=== PATIENT | female | born 1980 | race Caucasian/White ===

== ENCOUNTER 2021-05-10 08:52 | Emergency (ER) | payer SELFPAY | END 2021-05-10 09:15 | disposition left against medical advice (07) | LOC: ER 08:52 | DX: R52 Pain, unspecified (principal); Z53.21 Procedure and treatment not carried out due to patient leaving prior to being seen by health care provider ==

== ENCOUNTER 2021-05-12 14:09 | Emergency (ER) | payer OTHER ==
[~2021-05-12] VITALS: Ht 160 cm; Wt 75.0 kg
[2021-05-12] MEDS ORDERED: PROCHLORPERAZINE 10 MG/2 ML VIAL. IV ONE (15:00)
[2021-05-12] MEDS ORDERED: DEXAMETHASONE SOD PHOS 4 MG/ML VIAL IVP ONE (15:00)
[2021-05-12] MEDS ORDERED: LISINOPRIL 10 MG TABLET PO ONE (15:00)
[2021-05-12] MEDS ORDERED: diphenhydrAMINE HCL 25 MG CAPSULE PO ONE (15:00)
[2021-05-12 15:05] LABS: BASO % 1 % (0-3); EOS # 0.2 x10^3/uL (0.0-0.7); EOS % 4 % (0-3); HEMATOCRIT 35.4 % (36.0-47.0); HEMOGLOBIN 12.4 g/dL (12.0-15.5); LYMPH # 1.9 x10^3/uL (1.0-4.8); LYMPH % 37 % (24-48); MEAN CORPUSCULAR HEMOGLOBIN 32 pg (25-35); MEAN CORPUSCULAR HGB CONC 35 g/dL (31-37); MEAN CORPUSCULAR VOLUME 91 fL (79-100); MONO # 0.5 x10^3/uL (0.0-1.1); MONO % 10 % (0-9); NEUT # 2.5 x10^3/uL (1.8-7.7); NEUT % 49 % (31-73); PLATELET COUNT 223 x10^3/uL (140-400); RED BLOOD COUNT 3.88 x10^6/uL (3.50-5.40); RED CELL DISTRIBUTION WIDTH 13.1 % (11.5-14.5); WHITE BLOOD COUNT 5.1 x10^3/uL (4.0-11.0)
[2021-05-12 15:13] LABS: CALCIUM 9.1 mg/dL (8.5-10.1); CREATININE 1.1 mg/dL (0.6-1.0); GFR 54.7; POTASSIUM 3.6 mmol/L (3.5-5.1)
[2021-05-12 15:18] LABS: ALBUMIN 3.9 g/dL (3.4-5.0); ALBUMIN/GLOBULIN RATIO 1.1 (1.0-1.7); TOTAL BILIRUBIN 0.2 mg/dL (0.2-1.0); TOTAL PROTEIN 7.6 g/dL (6.4-8.2)
--- NOTE | 2021-05-12 15:26 | ED.ADGEN ---
General Adult EDM: Chief Complaint: SYNCOPE HPI: HPI: Patient is a 40-year-old female who presents to the emergency room after having an episode of dizziness while working. Patient states she has been having intermittent headaches throughout the day that started this morning. She then developed some lightheadedness and states that she just generally feels unwell. She states she has a history of high blood pressure but has not been on her medicine for the last month because she cannot get into her primary care phys ician. Patient denies any chest pain or shortness of breath. She denies any URI symptoms. Review of Systems: Review of Systems: Complete ROS is negative unless otherwise documented in HPI Current Medications: Current Medications Medications (Trade) Dose Ordered Sig/Rudy Start Time Stop Time Status Last Admin Dose Admin Dexamethasone Sodium Phosphate (Decadron) 10 mg 1X ONCE 05/12/21 15:00 05/12/21 15:20 DC 05/12/21 15:55 10 MG Diphenhydramine HCl (Benadryl) 25 mg 1X ONCE 05/12/21 15:00 05/12/21 15:20 DC 05/12/21 15:56 25 MG Lisinopril (Prinivil) 20 mg 1X ONCE 05/12/21 15:00 05/12/21 15:20 DC 05/12/21 15:56 20 MG Prochlorperazine Edisylate (Compazine) 10 mg 1X ONCE 05/12/21 15:00 05/12/21 15:20 DC 05/12/21 15:56 10 MG Allergies: Allergies: Allergies Coded Allergies Type Severity Reaction Last Updated Verified hydrocodone Allergy Severe itch 05/12/21 Yes escitalopram Adverse Reaction Severe emotionally outbursts 05/12/21 Yes Physical Exam: PE: General: Awake, alert, NAD. Well Nourished, well hydrated. Cooperative HEENT: Atraumatic, EOMI, PERRL, airway patent, moist oral mucosa Neck: Supple, trachea midline Respiratory: CTA bilaterally, normal effort, no wheezing/crackles CV: RRR, no murmur, cap refill <2 GI: Soft, nondistended, nontender, no masses MSK: No obvious deformities Skin: Warm, dry, intact Neuro: A&O x3, speech NL, 5/5 strength in BUE/BLE distally and proximally, CN 2- 12 intact, cerebellar testing normal Psych: Normal affect, normal mood, not suicidal or homicidal Current Patient Data: Labs: Laboratory Tests Test 05/12/21 14:30 White Blood Count 5.1 x10^3/uL (4.0-11.0) Red Blood Count 3.88 x10^6/uL (3.50-5.40) Hemoglobin 12.4 g/dL (12.0-15.5) Hematocrit 35.4 % (36.0-47.0) L Mean Corpuscular Volume 91 fL (79-100) Mean Corpuscular Hemoglobin 32 pg (25-35) Mean Corpuscular Hemoglobin Concent 35 g/dL (31-37) Red Cell Distribution Width 13.1 % (11.5-14.5) Platelet Count 223 x10^3/uL (140-400) Neutrophils (%) (Auto) 49 % (31-73) Lymphocytes (%) (Auto) 37 % (24-48) Monocytes (%) (Auto) 10 % (0-9) H Eosinophils (%) (Auto) 4 % (0-3) H Basophils (%) (Auto) 1 % (0-3) Neutrophils # (Auto) 2.5 x10^3/uL (1.8-7.7) Lymphocytes # (Auto) 1.9 x10^3/uL (1.0-4.8) Monocytes # (Auto) 0.5 x10^3/uL (0.0-1.1) Eosinophils # (Auto) 0.2 x10^3/uL (0.0-0.7) Basophils # (Auto) 0.0 x10^3/uL (0.0-0.2) Sodium Level 136 mmol/L (136-145) Potassium Level 3.6 mmol/L (3.5-5.1) Chloride Level 102 mmol/L (98-107) Carbon Dioxide Level 24 mmol/L (21-32) Anion Gap 10 (6-14) Blood Urea Nitrogen 13 mg/dL (7-20) Creatinine 1.1 mg/dL (0.6-1.0) H Estimated GFR (Cockcroft-Gault) 54.7 BUN/Creatinine Ratio 12 (6-20) Glucose Level 155 mg/dL (70-99) H Calcium Level 9.1 mg/dL (8.5-10.1) Total Bilirubin 0.2 mg/dL (0.2-1.0) Aspartate Amino Transferase (AST) 17 U/L (15-37) Alanine Aminotransferase (ALT) 23 U/L (14-59) Alkaline Phosphatase 64 U/L (46-116) Troponin I Quantitative < 0.017 ng/mL (0.000-0.055) Total Protein 7.6 g/dL (6.4-8.2) Albumin 3.9 g/dL (3.4-5.0) Albumin/Globulin Ratio 1.1 (1.0-1.7) Laboratory Tests 05/12/21 14:30 Laboratory Tests 05/12/21 14:30 Vital Signs: Vital Signs Date Time Temp Pulse Resp B/P (MAP) Pulse Ox O2 Delivery O2 Flow Rate FiO2 05/12/21 15:56 81 159/90 05/12/21 15:12 98.0 20 98 Room Air 98.0 EKG: EKG: [] Heart Score: C/O Chest Pain: N/A Risk Factors: Risk Factors: DM, Current or recent (<one month) smoker, HTN, HLP, family history of CAD, obesity. Risk Scores: Score 0 - 3: 2.5% MACE over next 6 weeks - Discharge Home Score 4 - 6: 20.3% MACE over next 6 weeks - Admit for Clinical Observation Score 7 - 10: 72.7% MACE over next 6 weeks - Early Invasive Strategies Radiology/Procedures: Radiology/Procedures: [] Course & Med Decision Making: Course & Med Decision Making Pertinent Labs and Imaging studies reviewed. (See chart for details) Patient is a 40-year-old female who presents to the emergency room after developing lightheadedness and headaches that started earlier today. Patient is neurovascularly intact. She is hypertensive. She has not been taking her medications for about a month. CT head will be done to rule out an intracranial hemorrhage. CT is negative. Lab work is unremarkable. EKG is normal. Patient is feeling better after a migraine cocktail. She does not appear to have hypertensive emergency. Will prescribe her her lisinopril. Patient's test results and vitals while in the ED were fully reviewed and discussed with the patient. Patient is stable and at this time does not need admission to the hospital. We have discussed strict return precautions and the importance of following up with their Primary Care Physician. Patient stated understanding and was given an opportunity to ask any questions. Patient is in agreement with plan. Dragon Disclaimer: Christina Disclaimer: This electronic medical record was generated, in whole or in part, using a voice recognition dictation system. Departure Departure Impression: Primary Impression: Hypertension Additional Impression: Dizziness Disposition: HOME / SELF CARE / HOMELESS Condition: STABLE Referrals: NO PCP (PCP) Patient Instructions: Hypertension, Migraine Headache Scripts Lisinopril (LISINOPRIL) 20 Mg Tablet 1 TAB PO DAILY, #30 TAB 5 Refills Prov: ESTELA HARVEY MD 05/12/21 Problem Qualifiers ESTELA HARVEY MD May 12, 2021 15:26
--- NOTE | 2021-05-12 15:34 | RAD ---
PQRS Compliance Statement: One or more of the following individualized dose reduction techniques were utilized for this examinat ion: 1. Automated exposure control 2. Adjustment of the mA and/or kV according to patient size 3. Use of iterative reconstruction technique CT head without contrast 05/12/2021 3:25 PM INDICATION: Dizzy, new onset headache and hypertension COMPARISON: None available TECHNIQUE: Multiple axial CT images of the head were obtained from skull base through the vertex with out intravenous contrast. FINDINGS: Head: Ventricles, sulci and basal cisterns are within normal limits. There is no hydrocephalus. Muhammad-white matter differentiation is normal. There is no acute intracranial hemorrhage. There is no mass, mass e ffect or midline shift. Posterior fossa is normal in appearance. Visualized portions of the orbits are normal. Paranasal sinuses are well aerated. Mastoid air cells a re well aerated. Scalp and calvaria are normal. IMPRESSION: No acute intracranial hemorrhage. Electronically signed by: Nadiya Gomez MD (05/12/2021 3:31 PM) [id number]
--- NOTE | 2021-05-12 15:36 | RAD ---
AP chest. HISTORY: Dizzy AP view was taken of the chest. Lungs are clear. Heart is normal in size. There is no pleural effusio n. IMPRESSION: 1. No acute chest disease. Electronically signed by: Sunny Orozco MD (05/12/2021 3:34 PM) [facility]
[2021-05-12 15:56] VITALS: BP 159/90
[2021-05-12] MEDS ORDERED: LISI20TA18 PO (16:45)
--- NOTE | 2021-05-12 17:49 | EKG ---
[facility] [address] [place] [address] Test Date: 2021-05-12 Test Time: 14:14:34 Pat Name: DEEP VAZ Department: Room: Gender: F Director Hr Communications: : 1980 Requested By: ESTELA HARVEY Order Number: [id number] Reading MD: Measurements Intervals [place] Rate: 88 P: 36 WV: 140 QRS: -8 QRSD: 94 T: 14 QT: 382 QTc: 466 Interpretive Statements SINUS RHYTHM LEFTWARD AXIS NO SPECIFIC ECG ABNORMALITIES RI6.01 No previous ECG available for comparison
== END 2021-05-12 17:00 | disposition home or self-care (01) ==
LOC: ER 14:09
DX: I10 Essential (primary) hypertension (principal); R42 Dizziness and giddiness; R51.9 Headache, unspecified; Z88.5 Allergy status to narcotic agent; Z88.8 Allergy status to other drugs, medicaments and biological substances
CPT/HCPCS: 36415; 70450; 71045; 80053; 84484; 85025; 93005; 96374; 96375; 99284; J0780; J1100; Q0163

== ENCOUNTER → 2021-05-29 | Outpatient (CLI) | payer OTHER ==
[2021-05-12 15:56] VITALS: BP 159/90
[~2021-05-29] MED LIST: LISI20TA18 PO
[2021-05-29 12:04] LABS: ALBUMIN 4.1 g/dL (3.4-5.0); ALBUMIN/GLOBULIN RATIO 1.1 (1.0-1.7); CALCIUM 9.1 mg/dL (8.5-10.1); GFR 61.1; POTASSIUM 4.4 mmol/L (3.5-5.1); TOTAL BILIRUBIN 0.3 mg/dL (0.2-1.0); TOTAL PROTEIN 7.8 g/dL (6.4-8.2)
== END ==
LOC: LAB 11:30
PROVIDERS: ATTEND Family Medicine
DX: I10 Essential (primary) hypertension (principal)
CPT/HCPCS: 36415; 80053

== ENCOUNTER → 2021-06-06 | Outpatient (CLI) | payer OTHER ==
[2021-05-12 15:56] VITALS: BP 159/90
--- NOTE | 2021-06-06 15:44 | RAD ---
EXAM: Bilateral digital screening mammogram with tomosynthesis. HISTORY: 40-year-old female presents for screening mammography. TECHNIQUE: Full-field digital craniocaudal and mediolateral oblique 2D and 3D tomosynthesis images of both breasts are obtained for evaluation. Computer aided detection was applied. COMPARISON: None. This is a baseline exam. BREAST PARENCHYMAL DENSITY: Level C - Heterogeneously dense. FINDINGS: There is asymmetric density within the posterior 11:30 position to 12:00 position of the le ft breast. There are additional areas of asymmetry which should not persist between projections. Ther e is no architectural distortion or suspicious calcification. IMPRESSION: BI-RADS Category 0: Incomplete. Additional imaging needed. RECOMMENDATION: Further evaluated with a full field true lateral view and spot compression views of t he left breast to assess asymmetry at the posterior 11:30 to 12:00 position is recommended. Sonograph ic imaging can also be performed if deemed indicated based on additional mammographic findings. If your mammogram demonstrates that you have dense breast tissue, which could hide abnormalities, and if you have other risk factors for breast cancer that have been identified, you might benefit from s upplemental screening tests that may be suggested by your ordering physician. Dense breast tissue, i n and of itself, is a relatively common condition. This information is not provided to cause undue c oncern, but rather to raise your awareness and to promote discussion with your physician regarding th e presence of other risk factors, in addition to dense breast tissue. A report of your mammography re sults will be sent to you and your physician. You should contact your physician if you have any ques tions or concerns regarding this report. Mammography is a sensitive method for finding small breast cancers, but it does not detect them all a nd is not a substitute for careful clinical examination. A negative mammogram does not negate a clin ically suspicious finding and should not result in delay in biopsying a clinically suspicious abnorma lity. PQRS compliance statement - Patient information was entered into a reminder system with a target due date for the next mammogram. "Our facility is accredited by the [employer] Mammography [employer]." Electronically signed by: Monique Boyce MD (06/06/2021 3:42 PM) [id number]
== END ==
LOC: MAMMO 13:50
PROVIDERS: ATTEND Family Medicine
DX: Z12.31 Encounter for screening mammogram for malignant neoplasm of breast (principal)
CPT/HCPCS: 77063; 77067

== ENCOUNTER → 2021-07-11 | Outpatient (CLI) | payer OTHER ==
--- NOTE | 2021-07-11 11:03 | RAD ---
EXAMINATION: US BREAST LT, MG DIAGNOSTICUNILAT MAMMO History: Recalled from screening mammogram for complete asymmetry in the left breast Comparison: 06/06/2021. Technique: Diagnostic mammogram the left breast was performed with full-field ML and spot compression CC and MLO views.. Findings: Breast Tissue Density B : There are scattered areas of fibroglandular density. The asymmetry of screening mammogram persists on spot compression CC view and has the appearance of f ibroglandular tissue. Focused ultrasound of the posterior left breast at 11:30 to 12:00 was performed. There is an area of dense fibroglandular tissue at 12:00 9 cm the nipple measuring 1.8 cm. This corresponds with the abno rmality seen by mammogram. There is no suspicious mass or cyst. No axillary lymphadenopathy. IMPRESSION: Dense fibroglandular tissue in the posterior upper left breast corresponding with the abnormality on mammogram. No evidence of malignancy. BI-RADS category 1: Negative. Recommend annual screening mammogram in 12 months. Patient information is entered into the reminder system with a target due date for the next screening mammogram. "Our facility is accredited by the [employer] Mammography Program." Electronically signed by: Gabriela Ivy MD (07/11/2021 11:01 AM) [id number]
== END ==
LOC: MAMMO 09:56
PROVIDERS: ATTEND Family Medicine
DX: R92.8 Other abnormal and inconclusive findings on diagnostic imaging of breast (principal)
CPT/HCPCS: 76641; 77065

== ENCOUNTER → 2021-07-12 | Outpatient (CLI) | payer OTHER ==
--- NOTE | 2021-07-15 11:07 | KCIC ---
EXAM: MRI RIGHT SHOULDER WITHOUT CONTRAST INDICATION: Right shoulder pain, worsening for 4 months. No known injury. COMPARISON: None TECHNIQUE: Multiplanar, multisequence imaging of the right shoulder without contrast. FINDINGS: ROTATOR CUFF: There is a partial-thickness articular sided tear of the mid to anterior supraspinatus tendon just proximal to the footprint measuring 6 x 5 mm. This involves about half of the tendon thic kness. There is adjacent interstitial tearing and shallow bursal fraying of the of the supraspinatus tendon distally at the footprint with thin intact fibers. The overall area of abnormality measures ab out 1 x 1 cm. This is superimposed on mild tendinopathy. Infraspinatus, subscapularis, and teres rona r tendons are intact. No rotator cuff muscle atrophy or edema. LABRUM: Grossly intact. BICEPS TENDON: Intact and located. ACROMIOCLAVICULAR JOINT: Mild acromioclavicular degenerative joint disease with mild subchondral cyst s and edema, capsular hypertrophy, and tiny inferior osteophytes. Type I acromion without significant downsloping. GLENOHUMERAL JOINT: Cartilage is intact. Marrow signal is normal. OTHER: No joint effusion. Mild subacromial and subdeltoid bursitis. IMPRESSION: 1. Small partial-thickness tear of the supraspinatus, as described. No full-thickness rotator cuff te ar. 2. Mild acromioclavicular degenerative joint disease. 3. Mild subacromial subdeltoid bursitis. Electronically signed by: Gabriela Ivy MD (07/15/2021 11:04 AM) [id number]
== END ==
LOC: KCIC MRI 13:54
PROVIDERS: ATTEND Orthopaedic Surgery
DX: M75.111 Incomplete rotator cuff tear or rupture of right shoulder, not specified as traumatic (principal); M19.011 Primary osteoarthritis, right shoulder; M75.51 Bursitis of right shoulder; M25.511 Pain in right shoulder
CPT/HCPCS: 73221

== ENCOUNTER → 2021-08-30 | Outpatient (CLI) | payer OTHER | LOC: SPEC 11:10 | PROVIDERS: ATTEND Obstetrics & Gynecology | DX: Z01.411 Encounter for gynecological examination (general) (routine) with abnormal findings (principal); N89.8 Other specified noninflammatory disorders of vagina | CPT/HCPCS: 87623; 88175; Q0111 ==

== ENCOUNTER 2021-09-24 10:53 | Emergency (ER) | payer OTHER ==
[~2021-09-24] VITALS: Ht 162.6 cm; Wt 76.9 kg
[2021-09-24 11:15] VITALS: BP 124/65
[2021-09-24] MEDS ORDERED: KETOROLAC 60 MG/2 ML VIAL. IM ONE (11:30)
--- NOTE | 2021-09-24 11:32 | PHYS DOC ---
Past Medical History Additional Past Medical Histor: ptsd (JASSI BRADSHAW APRN) Past Surgical History: Tubal ligation Additional Past Surgical Histo: back (JASSI BRADSHAW APRN) Smoking Status: Current Every Day Smoker Alcohol Use: None (JASSI BRADSHAW APRN) General Adult EDM: Chief Complaint: SHOUDLER HPI: HPI: Patient is a 41-year-old female who presents to the emergency department for right shoulder pain that is a constant throbbing pain that she rates 9 out of 10. She reports that she had a partial tear of her right rotator cuff and yesterday she was walking holding laundry and she fell onto her right arm with it extended. She is reporting most of her pain in her right AC joint and her bicep. She reports decreased range of motion to her shoulder due to pain but denies any decreased sensation to her extremity, wounds or decreased range of motion of elbow or wrist joint. (JASSI BRADSHAW APRN) Review of Systems: Review of Systems: Musculoskeletal: See HPI Integument: See HPI Neurologic: See HPI (JASSI BRADSHAW APRN) Heart Score: C/O Chest Pain: N/A Risk Factors: Risk Factors: DM, Current or recent (<one month) smoker, HTN, HLP, family history of CAD, obesity. Risk Scores: Score 0 - 3: 2.5% MACE over next 6 weeks - Discharge Home Score 4 - 6: 20.3% MACE over next 6 weeks - Admit for Clinical Observation Score 7 - 10: 72.7% MACE over next 6 weeks - Early Invasive Strategies (JASSI BRADSHAW APRN) Allergies: Allergies: Allergies Coded Allergies Type Severity Reaction Last Updated Verified hydrocodone Allergy Severe itch 09/24/21 Yes escitalopram Adverse Reaction Severe emotionally outbursts 09/24/21 Yes (JASSI BRADSHAW APRN) Physical Exam: PE: Constitutional: Well developed, well nourished, no acute distress, non-toxic appearance. [] HENT: Normocephalic, atraumatic, bilateral external ears normal, oropharynx moist, no oral exudates, nose normal. [] Eyes: PERRL, EOMI, conjunctiva normal, no discharge. [] Neck: Normal range of motion, no tenderness, supple, no stridor. [] Cardiovascular:Heart rate regular rhythm, no murmur [] Lungs & Thorax: Bilateral breath sounds clear to auscultation [] Abdomen: Bowel sounds normal, soft, no tenderness, no masses, no pulsatile masses. [] Skin: Warm, dry, no erythema, no rash. [] Back: normal rom Extremities: No tenderness, no cyanosis, no clubbing, ROM intact, no edema. Right shoulder: No obvious deformity, no crepitus, no palpable deformity to clavicle, decreased range of motion of right shoulder due to pain, neuro intact, pain with palpation to AC joint of right shoulder and bicep. Range of motion intact to right elbow and wrist. Neurologic: Alert and oriented X 3, normal motor function, normal sensory function, no focal deficits noted. [] Psychologic: Affect normal, judgement normal, mood normal. [] (JASSI BRADSHAW APRN) EKG: EKG: [] (JASSI BRADSHAW APRN) Radiology/Procedures: Radiology/Procedures: []PROCEDURE: SHOULDER 2+V RIGHT Exam Date: 09/24/2021 11:41 AM XR HUMERUS_RT 2 VIEWS, XR SHOULDER_RIGHT 2+ VIEWS Indication: Reason: fall / Spl. Instructions: / History: . FINDINGS/ IMPRESSION: No acute fracture or dislocation. Alignment and joint spaces are maintained. The soft tissues are within normal limits. Electronically signed by: Maria De Jesus Culver MD (09/24/2021 12:17 PM) [id number] DICTATED and SIGNED BY: MARIA DE JESUS CULVER MD DATE: 09/24/21 [id number] (JASSI BRADSHAW APRN) Course & Med Decision Making: Course & Med Decision Making Pertinent Labs and Imaging studies reviewed. (See chart for details) [] Patient presents to the emergency department for right shoulder pain. She states that she had a history of a partial tear to her right rotator cuff and she fell onto her extended right arm yesterday while carrying laundry. Patient denies any pain to her elbow or wrist and has range of motion and is neurovascularly intact. Patient is reporting pain to her right shoulder proximal to the AC joint and her right bicep. Imaging was performed of her shoulder and humerus. Patient treated with anti-inflammatory medications. patient is requesting an emergent MRI for her right shoulder pain post injury. I informed patient that we cannot do an emergent MRI in the ER for right shoulder pain especially when she has an injury. Patient stopped Dr. Loza who was in the ER rounding on patients and requested a emergent MRI from him. Dr. Loza stated that he was unable to perform an emergent MRI for patients shoulder pain. She states that she has a follow-up appointment with her orthopedic doctor Dr. Doyle. X-ray imaging shows no acute fractures or other findings. Sling ordered for patient. Patient is aggressive towards ER staff and cursing at ER nurse. Patient states that she has 5 mg oxycodone at home, she was advised to continue taking this at home for her pain. Patient reports that she took the last of her oxycodone at home this morning, it does appear that patient received only an 8-day supply of oxycodone on her K tracks. Patient discharged home with pain medication. If she requires any additional pain management she will need to follow-up with her primary care provider. Patient also advised to not operate a vehicle after taking narcotic pain medication. I discussed with patient all findings and diagnostic testing as well as the need to follow-up with PCP for further evaluation and treatment or return to the ER if any new or worsening symptoms. Strict return precautions were also discussed at length. Patient voiced understanding and agreement with the plan. Patient is hemodynamically stable at the time of disposition. (JASSI BRADSHAW APRN) Course & Med Decision Making I was the Attending physician on the above date of service of this patient. This patient was evaluated, examined, treated, and dispositioned from the emergency department by the mid-level practitioner. Although I was working at the time , no assistance was requested. Electronically signed, Chau Zuniga DO (CHAU ZUNIGA DO) Christina Disclaimer: Christina Disclaimer: This electronic medical record was generated, in whole or in part, using a voice recognition dictation system. (JASSI BRADSHAW APRN) Departure Departure Impression: Primary Impression: Shoulder pain Qualified Codes: M25.511 - Pain in right shoulder Additional Impression: Fall Qualified Codes: W19.XXXA - Unspecified fall, initial encounter Disposition: HOME / SELF CARE / HOMELESS Condition: GOOD Referrals: Scott GARCIA MD (PCP) Patient Instructions: Fall Prevention and Home Safety, [id number], Shoulder Pain Additional Instructions: You were seen in the emergency department today for right shoulder pain post injury. Imaging was performed of your right shoulder and humerus and showed no acute findings. You were treated with anti-inflammatory medication. Your shoulder was placed in a sling for comfort. You can continue taking your oxycodone that you have at home for pain. Please be advised that oxycodone can be sedating and you should not operate a vehicle after taking this medication. You are requesting an MRI for your right shoulder, as I discussed with you, we cannot perform an emergent MRI on your shoulder in the ER. You will need to follow-up with your doctor or Dr. Doyle in order to get an outpatient MRI. I would advise you to contact your primary care provider if you require any additional pain management. Please return to the emergency department if you have an additional injury, worsening of your pain, decreased sensation to your extremity. EMERGENCY DEPARTMENT GENERAL DISCHARGE INSTRUCTIONS Thank you for coming to [facility] Emergency Department (ED) today and trusting us with you care. We trust that you had a positive experience in our Emergency Department. If you wish to speak to the department management, you may call the Director at [phone]. YOUR FOLLOW UP INSTRUCTIONS ARE FOLLOWS: 1. Do you have a private Doctor? If you do not have a private doctor, please ask for a resource list of physicians or clinics that may be able to assist you with follow up care. 2. The Emergency Physicain has interpreted your x-rays. The X-Ray specialist will also review them. If there is a change in the findings, you will be notified in 48 hours when at all possible. 3. A lab test or culture has been done, your results will be reviewed and you will be notified if you need a change in treatment. ADDITIONAL INSTRUCTIONS AND INFORMATION: 1. Your care today has been supervised by a physician who is specially trained in emergency care. Many problems require more than one evaluation for a complete diagnosis and treatment. We recommend that you schedule your follow up appointment as recommended to ensure complete treatment of you illness or injury. If you are unable to obtain follow up care and continue to have a problem, or if your condition worsens, we recommend that you return to the ED. 2. We are not able to safely determine your condition over the phone nor are we able to give sound medical advice over the phone. For these safety reasons, if you call for medical advice we will ask you to come to the ED for further evaluation. 3. If you have any questions regarding these discharge instructions please call the ED at [phone]. SAFETY INFORMATION: In the interest of safety, wellness, and injury prevention; we encourage you to wear your sealbelt, if you smoke; quite smoking, and we encourage family to use a protective helmet for bicycling and other sporting events that present an increased risk for head injury. IF YOUR SYMPTOMS WORSEN OR NEW SYMPTOMS DEVELOP, OR YOU HAVE CONCERNS ABOUT YOUR CONDITION; OR IF YOUR CONDITION WORSENS WHILE YOU ARE WAITING FOR YOUR FOLLOW UP APPOINTMENT; EITHER CONTACT YOUR PRIMARY CARE DOCTOR, THE PHYSICIAN WHOSE NAME AND NUMBER YOU WERE GIVEN, OR RETURN TO THE ED IMMEDIATELY. Scripts Oxycodone/Apap 5-325 (PERCOCET 5-325 MG TABLET ) 1 Each Tablet 1 TAB PO PRN Q6HRS PRN for PAIN for 2 Days, #8 TAB 0 Refills Prov: JASSI BRADSHAW APRN 09/24/21 JASSI BRADSHAW APRN Sep 24, 2021 11:32 CHAU ZUNIGA DO Sep 24, 2021 15:58
--- NOTE | 2021-09-24 12:20 | RAD ---
Exam Date: 09/24/2021 11:41 AM XR HUMERUS_RT 2 VIEWS, XR SHOULDER_RIGHT 2+ VIEWS Indication: Reason: fall / Spl. Instructions: / History: . FINDINGS/ IMPRESSION: No acute fracture or dislocation. Alignment and joint spaces are maintained. The soft tissues are w ithin normal limits. Electronically signed by: Russell Culver MD (09/24/2021 12:17 PM) [id number]
[2021-09-24] MEDS ORDERED: OXYC1TAB15 PO (13:02)
== END 2021-09-24 13:03 | disposition home or self-care (01) ==
LOC: ER 10:53
DX: M25.511 Pain in right shoulder (principal); F43.10 Post-traumatic stress disorder, unspecified; F17.200 Nicotine dependence, unspecified, uncomplicated; G89.11 Acute pain due to trauma; Z88.5 Allergy status to narcotic agent; Z88.8 Allergy status to other drugs, medicaments and biological substances; W18.39XA Other fall on same level, initial encounter; Y93.89 Activity, other specified; Y92.89 Other specified places as the place of occurrence of the external cause; Y99.8 Other external cause status
CPT/HCPCS: 73030; 73060; 96372; 99284; J1885

== ENCOUNTER 2021-10-15 07:57 | Day surgery (SDC) | payer OTHER ==
[~2021-10-15] VITALS: Ht 162.6 cm; Wt 77.0 kg
[~2021-10-15 07:57] MED LIST changes: +ACET325T9 PO; +FLUO40CA9 PO; +GABA300C18 PO; +HYDROmorphone 2 MG/ML INJ. IVP PRN; +IBUP-1060 PO; +IV RINGERS,LACTATED 1000ML 1,000 ML IV SCH; +LAMO200T3 PO; +LISI-130 PO; +OXYC1TAB15 PO; +PROCHLORPERAZINE 10 MG/2 ML VIAL. IVP PRN; +ZOLP5TAB PO; +ceFAZolin SODIUM IV Push 1 GM VIAL. IVP PRN; +fentaNYL PF VIAL 100 MCG/2 ML VIAL IVP PRN
[2021-10-15 08:20] VITALS: BP 140/82
[2021-10-15] MEDS ORDERED: PROPOFOL 10 MG/ML (20ML) VIAL. IV ONE ×2 (08:31→10:17)
[2021-10-15] MEDS ORDERED: fentaNYL PF VIAL 100 MCG/2 ML VIAL ONE (08:31)
[2021-10-15] MEDS ORDERED: ROCURONIUM 50 MG/5 ML VIAL. ONE (08:31)
[2021-10-15] MEDS ORDERED: PHENYLEPHRINE in 0.9% NACL PF 1 MG/10 ML SYRINGE. IV ONE (08:32)
[2021-10-15] MEDS ORDERED: ONDANSETRON PF 4 MG/2 ML VIAL. ONE (08:32)
[2021-10-15] MEDS ORDERED: DEXAMETHASONE SOD PHOS 4 MG/ML VIAL ONE (08:32)
[2021-10-15] MEDS ORDERED: LIDOCAINE 2% PF 5 ML VIAL. ONE (08:32)
[2021-10-15] MEDS ORDERED: LIDOCAINE 1% PF 2 ML VIAL. ONE (09:18)
[2021-10-15] MEDS ORDERED: MIDAZOLAM HCL/PF 2 MG/2 ML VIAL. ONE (09:18)
[2021-10-15] MEDS ORDERED: ROPIVacaine 0.5% PF 20 ML VIAL. ONE (09:18)
[2021-10-15] MEDS ORDERED: EPINEPHrine VIAL 30 MG/30 ML VIAL ONE (09:32)
[2021-10-15] MEDS ORDERED: NEOSTIGMINE METHYLSULFATE 5 MG/5 ML SYRINGE. ONE (09:54)
[2021-10-15] MEDS ORDERED: SUCCINYLCHOLINE 200 MG/10 ML VIAL. ONE (09:55)
[2021-10-15] MEDS ORDERED: GLYCOPYRROLATE 1 MG/5 ML VIAL. ONE (09:58)
--- NOTE | 2021-10-15 09:58 | DISCH ---
DISCHARGE INSTRUCTIONS Condition on Discharge Condition on Discharge: Stable Activity After Discharge Activity Instructions for Disc: Other ROM activity Other activity instructions: arm to remain in sling Bathing Instructions: Shower-keep dressing dry Weight Bearing Status after Di: Non weight bearing Diet after Discharge Diet after Discharge: Regular Wound Incision Care Wound/Incision Care: Ice to area for comfort, Keep wound/cast CDI Other wound/incision instructi: ok to change dressing in [address] after DC Call your doctor for: Concerns you may have Follow-Up Follow up with: Mansoor in 2 wks JUAREZ JANE II, MD Oct 15, 2021 09:57
--- NOTE | 2021-10-15 09:59 | PDOC4 ---
Operative Note Operative Note Date of procedure: 2021-10-15 Surgeon: Damion Jane [employer] Detective: Eliot Salazar Preoperative diagnosis: Right shoulder rotator cuff tear Postoperative diagnosis same Procedure performed: Arthroscopic right shoulder rotator cuff repair Anesthesia: General plus regional nerve block Findings: Near complete supraspinatus tear, about 1 cm in length Remainder of rotator cuff unremarkable Glenohumeral cartilage unremarkable Labrum intact circumferentially Biceps without pathology Longitudinal split in subscap tendon No loose bodies Complications: None Blood loss: 5 mL Components inserted: [employer] Helaco[employer] anchor Reason for procedure: 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 Please refer to my outpatient encounters for further details. We had a discussion of the risks, benefits, alternatives to surgery and she wished to proceed. Description of procedure: Patient was greeted in the preoperative area by myself or the correct extremity was verified and marked. She had placement of a regional nerve block by the anesthesiology team. She was taken to the operative suite, antibiotics were started as she was brought back. Once she was in the operating room, she was transferred gently supine to the operating room table and secured to the bed with all pressure points padded and had successful induction of a general anesthetic. We then proceeded to set her up in a beachchair position, securing her to the bed, large pad under her legs, C-spine maintained in neutral position. The right upper extremity was then prepped and draped in the usual sterile fashion including Ioban at the periphery. I then palpated marked surface anatomy and amelia lines for my planned arthroscopic portal incisions. I used a spinal needle to localize a posterior superior portal and incised skin in accordance with this. I then introduced the blunt arthroscopic trocar into the glenohumeral joint followed by the camera. Next, I used a spinal needle to localize an anterosuperior portal and introduced the probe. I then conducted my diagnostic arthroscopy with above-noted findings. I then was able to debride some of the tendon from an intra-articular vantage point, I then withdrew the shaver from the glenohumeral joint and repositioned the camera into the subacromial space and performed a bursectomy with a shaver and electrocautery. I debrided the unhealthy appearing tendon and prepared the footprint. I then used my all to create a starting hole and placed a single anchor. I then shuttled the 2 suture limbs through a simple configuration with the suture passing device and tied these down using arthroscopic knot tying techniques. The tear was well approximated and repaired, stable to probing and motion in her arm. I then remove all excess arthroscopic fluid and the arthroscopic instrumentation. Portals were closed with inverted interrupted Monocryl suture. The arm was and shoulder were cleansed and dried and a sterile bulky dressing was applied followed by an abduction pillow sling. At the inclusion, the patient was laid supine and transferred on spine to the recovery cart and taken to the PACU in stable and extubated condition. Postoperative plan is to discharge her home, nonweightbearing, sling for 4 weeks, we'll get her started on physical therapy. DAMION JANE II, MD Oct 15, 2021 09:59
[2021-10-15] MEDS ORDERED: PROCHLORPERAZINE 10 MG/2 ML VIAL. ONE (11:27)
[2021-10-15] MEDS ORDERED: MORPHINE SULFATE 2 MG/ML INJ. ONE (11:27)
[2021-10-15] MEDS: MORPHINE SULFATE 2 MG/ML INJ. IVP PRN ×2 (11:29→11:39)
[2021-10-15] MEDS ORDERED: oxyCODONE/APAP 5/325 1 TAB TABLET PO ONE (12:00)
[2021-10-15 12:39] VITALS: BP 130/83
== END 2021-10-15 13:13 | disposition home or self-care (01) ==
LOC: SURG 07:57
PROVIDERS: ATTEND Orthopaedic Surgery Sports Medicine
DX: M75.101 Unspecified rotator cuff tear or rupture of right shoulder, not specified as traumatic (principal); I10 Essential (primary) hypertension; F41.9 Anxiety disorder, unspecified; F32.9 Major depressive disorder, single episode, unspecified; F17.210 Nicotine dependence, cigarettes, uncomplicated; Z79.899 Other long term (current) drug therapy; Z98.890 Other specified postprocedural states; Z88.8 Allergy status to other drugs, medicaments and biological substances
CPT/HCPCS: 29827; 36415; 64415; 81025; 82306; A4355; A4364; A4565; A4928; A4930; A6253; C1713; J0171; J0330; J0690; J0780; J1100; J2250; J2270; J2370; J2405; J2704; J2710; J2795; J3010; J3490; A4222; A4452